=== PATIENT | female | born 1995 | race Two or more races ===

== ENCOUNTER 2025-02-19 10:50 | Observation (INO) | payer MEDICAID ==
[~2025-02-19] VITALS: Ht 154.9 cm; Wt 74.4 kg
--- NOTE | 2025-02-19 12:13 | DVH ---
BIOPHYSICAL PROFILE HISTORY: GDMA1 TECHNIQUE: Multiple transabdominal real-time grayscale sonographic images through the gravid uterus of the fetus with duplex Doppler color flow and M-mode spectral analysis FINDINGS: BIOPHYSICAL PROFILE: breathing score: 2 movement score: 2 tone score: 2 Quantitative STEPAN score: 2 (STEPAN: 16 Cm.) Total score: 8 The cervix WAS NOT SEEN Single live fetus in cephalic presentation. heart rate 109 beats per minute. Grade II right lateral placenta without previa or abruption IMPRESSION: Biophysical profile score: 8
[2025-02-19] MEDS ORDERED: PREN-96 PO (12:16)
--- NOTE | 2025-02-19 15:55 | DVHDS2 ---
Physician Discharge Progress N Final Diagnosis: GDMA1 Secondary Diagnosis: Encounter for surveillance Operations or Procedures: Operations or Procedures NST/BPP STEPAN all NORMAL Condition on Discharge: Stable Disposition: Home Discharge Instructions: Diet: Consistent carbohydrate Activity: No Restrictions, As Tolerated Follow Up/Referral: as scheduled Medications: N/A Follow Up Care: Discharge Statement: "Patient was advised to return to the ER or call 911 if any headaches, dizziness, shortness of breath, chest pain, abdominal pain, bleeding, fevers, or worsening of medical condition. Patient was counseled about treatment plan, medications, possible side effects, patientverbalized understanding. All questions were answered to the best of my ability. This discharge took greater then 30 minutes in planning, reviewing documentation, counseling the patient, and discussing with other team members." Visit Coding OBGYN Date of Service: Feb 19, 2025 Billing Provider: DENISE JAVIER DO CAUSTIC OPERATOR Common Visit Codes: 06643-DJU/OBS SAME DATE (MOD) CAUSTIC OPERATOR Procedure Codes: 80769-27- NON-STRESS TEST DENISE JAVIER DO Feb 19, 2025 15:55
== END 2025-02-19 12:34 | disposition home or self-care (01) ==
LOC: UNDOADMOB 10:50 → LDRP 10:50
PROVIDERS: ADMIT Obstetrics & Gynecology; ATTEND Obstetrics & Gynecology
DX: O24.419 Gestational diabetes mellitus in pregnancy, unspecified control (principal); Z3A.34 34 weeks gestation of pregnancy; Z79.899 Other long term (current) drug therapy
CPT/HCPCS: 59025; 76819; 81002; 82948; 82962; 94760; G0378

== ENCOUNTER 2025-02-26 07:25 | Observation (INO) | payer MEDICAID ==
[~2025-02-26 07:25] MED LIST: PREN-96 PO
--- NOTE | 2025-02-26 10:59 | DVH ---
BIOPHYSICAL PROFILE HISTORY: GDMA1 TECHNIQUE: Multiple transabdominal real-time grayscale sonographic images through the gravid uterus o f the fetus with duplex doppler color flow and M-mode spectral analysis FINDINGS: BIOPHYSICAL PROFILE: breathing score: 2 movement score: 2 tone score: 2 Quantitative STEPAN score: 2 (STEPAN: 15.4 cm.) Total score: 8/8 Single live fetus in cephalic presentation. heart rate 143 beats per minute. Posterior/fundal placenta without previa or abruption Biophysical profile score 8/8 corresponding to an JOSE of 04/02/25 IMPRESSION: Biophysical profile score: 8/8
--- NOTE | 2025-02-26 13:14 | DVHDS2 ---
Physician Discharge Progress N Final Diagnosis: gdm 35wks Operations or Procedures: Operations or Procedures nst reactive reviewed,sono Condition on Discharge: Good Disposition: Home Discharge Instructions: Diet: Consistent carbohydrate Activity: No Restrictions, As Tolerated Medications: na Follow Up Care: Specialist: 1w Discharge Statement: "Patient was advised to return to the ER or call 911 if any headaches, dizziness, shortness of breath, chest pain, abdominal pain, bleeding, fevers, or worsening of medical condition. Patient was counseled about treatment plan, medications, possible side effects, patientverbalized understanding. All questions were answered to the best of my ability. This discharge took greater then 30 minutes in planning, reviewing documentation, counseling the patient, and discussing with other team members." Visit Coding OBGYN Date of Service: Feb 26, 2025 Billing Provider: MILO PEREZ DO LUCERNE FARMER Common Visit Codes: 39108-[id number] OBS CARE (HIGH) LUCERNE FARMER Procedure Codes: 01771-74- NON-STRESS TEST MILO PEREZ DO Feb 26, 2025 13:14
== END 2025-02-26 11:03 | disposition home or self-care (01) ==
LOC: UNDOADMOB 09:50 → LDRP 09:50
PROVIDERS: ADMIT Obstetrics & Gynecology; ATTEND Obstetrics & Gynecology
DX: O24.419 Gestational diabetes mellitus in pregnancy, unspecified control (principal); Z3A.35 35 weeks gestation of pregnancy; Z79.899 Other long term (current) drug therapy; Z98.890 Other specified postprocedural states
CPT/HCPCS: 59025; 76819; 81002; 82948; 94760; G0378

== ENCOUNTER 2025-03-05 10:00 | Observation (INO) | payer MEDICAID ==
--- NOTE | 2025-03-05 11:37 | DVH ---
BIOPHYSICAL PROFILE HISTORY: GDMA1 TECHNIQUE: Multiple real-time grayscale sonographic images through the gravid uterus of the fetus wi th duplex Doppler color flow. FINDINGS: BIOPHYSICAL PROFILE: breathing score: 2 movement score: 2 tone score: 2 Quantitative STEPAN score: 2 Total score: 8 out of 8 Single live intrauterine . heart rate of 135 beats per minute. Cephalic lie. Placenta fundal repositioned. STEPAN 14.5 cm. IMPRESSION: Biophysical profile score: 8 out of 8
--- NOTE | 2025-03-05 13:03 | DVHDS2 ---
Physician Discharge Progress N Final Diagnosis: gdm 36wks Operations or Procedures: Operations or Procedures nst reactive reviwed,sono Condition on Discharge: Good Disposition: Home Discharge Instructions: Diet: Consistent carbohydrate Activity: No Restrictions, As Tolerated Medications: na Follow Up Care: Specialist: 3d Discharge Statement: "Patient was advised to return to the ER or call 911 if any headaches, dizziness, shortness of breath, chest pain, abdominal pain, bleeding, fevers, or worsening of medical condition. Patient was counseled about treatment plan, medications, possible side effects, patientverbalized understanding. All questions were answered to the best of my ability. This discharge took greater then 30 minutes in planning, reviewing documentation, counseling the patient, and discussing with other team members." Visit Coding OBGYN Date of Service: Mar 05, 2025 Billing Provider: MILO PEREZ DO GALLEY WORKER Common Visit Codes: 75526-[id number] OBS CARE (HIGH) GALLEY WORKER Procedure Codes: 16385-50- NON-STRESS TEST MILO PEREZ DO Mar 05, 2025 13:03
== END 2025-03-05 11:28 | disposition home or self-care (01) ==
LOC: LDRP 10:00
PROVIDERS: ADMIT Obstetrics & Gynecology; ATTEND Obstetrics & Gynecology
DX: O24.419 Gestational diabetes mellitus in pregnancy, unspecified control (principal); Z3A.36 36 weeks gestation of pregnancy; Z79.899 Other long term (current) drug therapy; Z98.890 Other specified postprocedural states
CPT/HCPCS: 59025; 76819; 81002; 82948; 82962; 94760; G0378

== ENCOUNTER 2025-03-11 08:43 | Observation (INO) | payer MEDICAID ==
--- NOTE | 2025-03-11 11:46 | DVH ---
BIOPHYSICAL PROFILE HISTORY: GDMA1 TECHNIQUE: Multiple transabdominal real-time grayscale sonographic images through the gravid uterus of the fetus with duplex Doppler color flow and M-mode spectral analysis FINDINGS: BIOPHYSICAL PROFILE: breathing score: 2 movement score: 2 tone score: 2 Quantitative STEPAN score: 2 (STEPAN: 16.7 Cm.) Total score: 8 The cervix was not seen Single live fetus in cephalic presentation. heart rate 131 beats per minute. Grade II posterior placenta without previa or abruption IMPRESSION: Biophysical profile score: 8/8
--- NOTE | 2025-03-12 07:36 | DVHDS2 ---
Physician Discharge Progress N Final Diagnosis: gdm 36wks Operations or Procedures: Operations or Procedures nst reactive reviwed,sono Condition on Discharge: Good Disposition: Home Discharge Instructions: Diet: Regular, Consistent carbohydrate Activity: No Restrictions, As Tolerated Medications: na Follow Up Care: Specialist: 3d Discharge Statement: "Patient was advised to return to the ER or call 911 if any headaches, dizziness, shortness of breath, chest pain, abdominal pain, bleeding, fevers, or worsening of medical condition. Patient was counseled about treatment plan, medications, possible side effects, patientverbalized understanding. All questions were answered to the best of my ability. This discharge took greater then 30 minutes in planning, reviewing documentation, counseling the patient, and discussing with other team members." Visit Coding OBGYN Date of Service: Mar 11, 2025 Billing Provider: MILO PEREZ DO SUPERVISOR EDUCATION Common Visit Codes: [id number] INP/OBS CARE (HIGH) SUPERVISOR EDUCATION Procedure Codes: 16659-24- NON-STRESS TEST MILO PEREZ DO Mar 12, 2025 07:36
== END 2025-03-11 12:53 | disposition home or self-care (01) ==
LOC: LDRP 10:30
PROVIDERS: ADMIT Obstetrics & Gynecology; ATTEND Obstetrics & Gynecology
DX: O24.419 Gestational diabetes mellitus in pregnancy, unspecified control (principal); Z3A.36 36 weeks gestation of pregnancy; Z79.899 Other long term (current) drug therapy; Z98.890 Other specified postprocedural states
CPT/HCPCS: 59025; 76819; 81002; 82948; 82962; 84112; 94760; G0378

== ENCOUNTER 2025-03-12 18:19 | Observation (INO) | payer MEDICAID ==
--- NOTE | 2025-03-12 19:22 | DVH ---
OB ULTRASOUND, LIMITED CLINICAL INDICATION: Decreased movement TECHNIQUE: Multiple grayscale ultrasound and M-mode images were obtained of the pelvis for evaluation of intrauterine . COMPARISON: US BIOPHYSICAL PROFILE on DOS: 03/11/25, US BIOPHYSICAL PROFILE on DOS: 03/05/25, US BIOPHYS ICAL PROFILE on DOS: 02/26/25 FINDINGS: A single living fetus is seen in cephalic presentation. Biophysical profile: 04/16 breathin movements: 2 Amniotic fluid: 2 Placenta: Posterior. Amniotic fluid: Visibly normal. STEPAN 18.4 cm heart rate: 122 beats/min. A single nuchal cord is seen. IMPRESSION: Biophysical profile: 04/16
--- NOTE | 2025-03-12 21:41 | DVHDS2 ---
ISRAEL ROSARIO CNMJul 2024 21:41
--- NOTE | 2025-03-13 07:16 | DVHDS2 ---
Physician Discharge Progress N Final Diagnosis: NST Reactive and Reassuring False Labor Secondary Diagnosis: MOVEMENT- Operations or Procedures: Operations or Procedures NST REACTIVE HERBERT COOPERPT SEEN BY ME Condition on Discharge: Good Disposition: Home Discharge Instructions: Diet: Regular Activity: No Restrictions, As Tolerated Activity comment: Refrain from sexual relations for two-three days for body to rest Follow Up/Referral: Keep Scheduled appointment with Dr Vivas Medications: PNV Follow Up Care: Specialist: 4D Discharge Statement: "Patient was advised to return to the ER or call 911 if any headaches, dizziness, shortness of breath, chest pain, abdominal pain, bleeding, fevers, or worsening of medical condition. Patient was counseled about treatment plan, medications, possible side effects, patientverbalized understanding. All questions were answered to the best of my ability. This discharge took greater then 30 minutes in planning, reviewing documentation, counseling the patient, and discussing with other team members." Visit Coding OBGYN Date of Service: Mar 12, 2025 Billing Provider: MILO VIVAS DO PLANE RUNNER Common Visit Codes: 24919-QICZAVF OBS CARE (HIGH) PLANE RUNNER Procedure Codes: 94008-49- NON-STRESS TEST MILO VIVAS DO Mar 13, 2025 07:16
== END 2025-03-12 22:13 | disposition home or self-care (01) ==
LOC: LDRP 18:19
PROVIDERS: ADMIT Obstetrics & Gynecology; ATTEND Obstetrics & Gynecology
DX: O36.8130 Decreased fetal movements, third trimester, not applicable or unspecified (principal); O47.03 False labor before 37 completed weeks of gestation, third trimester; Z3A.37 37 weeks gestation of pregnancy; Z79.899 Other long term (current) drug therapy; Z98.890 Other specified postprocedural states
CPT/HCPCS: 59025; 76819; 81002; 82948; 82962; 94760; G0378

== ENCOUNTER 2025-03-18 02:26 | Observation (INO) | payer MEDICAID ==
--- NOTE | 2025-03-18 14:30 | DVH ---
CLINICAL HISTORY: Gestational diabetes. COMPARISON: US BIOPHYSICAL PROFILE on DOS: 03/12/25, US BIOPHYSICAL PROFILE on DOS: 03/11/25, US BIOPHYSI RAMON PROFILE on DOS: 03/05/25 TECHNIQUE: biophysical profile was performed. Transabdominal sonographic images of the fetus we re obtained. FINDINGS: The fetus is in cephalic position. heart rate measures 128 BPM. Amniotic fluid index measures 17.6 cm. The placenta is posterior in position with no evidence of previa or abruption. Poss ible nuchal cord X1 with the umbilical cord coursing at least partially around the patient's neck. BPP profile is an overall score of 8/8, with 2/2 points for breathing, with at least one episode of breathing over a 30 second duration during a 30 minute observation, 2/2 points for m ovements, with 3 or more discrete body or limb movements, 2/2 points for tone, with one or more episodes of extremity extension with return to flexion, or opening and closing of hand, and 2/ 2 points for amniotic fluid, with at least 1 pocket of amniotic fluid that measures 2 cm in 2 perpend icular planes. IMPRESSION: 1. BPP score of 8/8. 2. Possible nuchal cord.
--- NOTE | 2025-03-23 15:23 | DVHDS2 ---
Physician Discharge Progress N Final Diagnosis: gdm 37wks Operations or Procedures: Operations or Procedures nst reviwed,reactive,sono Condition on Discharge: Good Disposition: Home Discharge Instructions: Diet: Regular, Consistent carbohydrate Activity: No Restrictions, As Tolerated Medications: na Follow Up Care: Specialist: 4d Discharge Statement: "Patient was advised to return to the ER or call 911 if any headaches, dizziness, shortness of breath, chest pain, abdominal pain, bleeding, fevers, or worsening of medical condition. Patient was counseled about treatment plan, medications, possible side effects, patientverbalized understanding. All questions were answered to the best of my ability. This discharge took greater then 30 minutes in planning, reviewing documentation, counseling the patient, and discussing with other team members." Visit Coding OBGYN Date of Service: Mar 18, 2025 Billing Provider: MILO PEREZ DO GUN SEALING MACHINE OPERATOR Common Visit Codes: 87020-[id number] OBS CARE (HIGH) GUN SEALING MACHINE OPERATOR Procedure Codes: 58611-86- NON-STRESS TEST MILO PEREZ DO Mar 23, 2025 15:23
== END 2025-03-18 14:48 | disposition home or self-care (01) ==
LOC: LDRP 13:03
PROVIDERS: ADMIT Obstetrics & Gynecology; ATTEND Obstetrics & Gynecology
DX: O24.419 Gestational diabetes mellitus in pregnancy, unspecified control (principal); Z3A.37 37 weeks gestation of pregnancy; Z79.899 Other long term (current) drug therapy; Z98.890 Other specified postprocedural states
CPT/HCPCS: 59025; 76819; 81002; 82948; 82962; 94760; G0378

== ENCOUNTER 2025-03-25 06:46 | Inpatient (IN) | payer MEDICAID ==
[~2025-03-25] VITALS: Ht 152.4 cm; Wt 79.4 kg
--- NOTE | 2025-03-25 13:53 | DVH ---
BIOPHYSICAL PROFILE HISTORY: GDMA1 Comparison Study: US BIOPHYSICAL PROFILE on DOS: 03/18/25, US BIOPHYSICAL PROFILE on DOS: 03/12/25, US B IOPHYSICAL PROFILE on DOS: 03/11/25, US BIOPHYSICAL PROFILE on DOS: 03/05/25, US BIOPHYSICAL PROFILE on DOS: 02/26/25 TECHNIQUE: Multiple real-time grayscale sonographic images through the gravid uterus of the fetus wi th duplex Doppler color flow and M-mode spectral analysis FINDINGS: BIOPHYSICAL PROFILE: breathing score: 2 movement score: 2 tone score: 2 Quantitative STEPAN score: 2 (STEPAN: 18.3 Cm.) Total score: 8 The cervix is not visualized Single live fetus in cephalic presentation. heart rate 120 beats per minute. Posterior placenta without previa or abruption IMPRESSION: Biophysical profile score: 8/8 Positive nuchal cord.
[2025-03-25 14:30] LABS: Hematocrit 37.7 % (36.0-46.0); Hemoglobin 12.2 g/dL (12.2-16.2); Mean Corpuscular Hemoglobin 24.1 pg (28.0-32.0); Mean Corpuscular Volume 74.5 fL (80.0-100.0); Nucleated Red Blood Cells % 0.1 %
[2025-03-25 14:45] LABS: INR 0.95 (0.9-1.15); Partial Thromboplastin Time 28.1 SEC (24.5-34.5); Prothrombin Time 10.1 sec (9.3-11.8)
[2025-03-25 14:46] LABS: Alanine Aminotransferase 10 U/L (7-40); Albumin 3.9 g/dL (3.2-4.8); Anion Gap 10 (5-15); BUN/Creatinine Ratio 11.5 (10.0-20.0); Bilirubin, Total 0.3 mg/dL (0.2-1.0); Calcium 9.8 mg/dL (8.7-10.4); Carbon Dioxide 21 mmol/L (20-31); Potassium 3.9 mmol/L (3.5-5.1); Sodium 139 mmol/L (136-145); Total Protein 6.1 g/dL (5.7-8.2)
[2025-03-25 14:47] LABS: Alkaline Phosphatase 195 U/L (46-116); Blood Urea Nitrogen 7 mg/dL (9-23); Chloride 108 mmol/L (98-107); Glucose 129 mg/dL (74-106)
[2025-03-25 15:33] LABS: Urine Protein, UAD Negative (Negative)
[2025-03-25 15:51] LABS: Amphetamine Screen, Urine Neg (NEGATIVE)
[2025-03-25 15:52] LABS: Barbiturate Scree,Urine Neg (NEGATIVE); Benzodiazephine Screen, Urine Neg (NEGATIVE); Cannabinoid Screen, Urine Neg (NEGATIVE); Cocaine Screen, Urine Neg (NEGATIVE); Opiate Scree,Urine Neg (NEGATIVE); Phencyclidine Screen, Urine Neg (NEGATIVE)
[2025-03-25] MEDS ORDERED: LACT. RINGERS/OXYTOCIN 20UNITS 1,000 ML IV SCH (20:15)
[2025-03-25] MEDS ORDERED: LACT. RINGERS/OXYTOCIN 20UNITS 500 ML IV ONE ×2 (20:15→20:45)
[2025-03-25] MEDS ORDERED: TERBUTALINE SULFATE 1 MG/ML 1ML VIAL SC PRN (20:15)
[2025-03-26] VITALS (14 sets, daily range): BP systolic 102–135; BP diastolic 54–94; PULSE 68–95; RESP 15–20; TEMP 98–98.5; O2SAT 92–97
--- NOTE | 2025-03-26 02:23 | DVHPN2 ---
[facility] Labor Progress Note Date and Time Seen Date Seen: Mar 26, 2025 Time Seen: 02:15 Subjective Patient reports: No new complaints Subjective Comment Patient is getting back into bed from using the restroom. She is feeling occasional pain in her lower pelvis, but declines need for medication. Objective Vital Signs 03/25 @ 2257: BP-109/60 HR- 59 RR- 16 SpO2- 100 T- 98.1 Monitoring Method Monitoring Method: External Heart Rate Heart Rate Baseline: 110 Heart Rate Variability: Moderate Presence of FHR Accelerations: Yes Presence of FHR Decelerations: Yes Heart Rate Type of Decel: Variable Decelerations (occasional. not recurrent) Contractions Contractions Frequency: Occasional Contractions Intensity: Mild Contractions Resting Tone: Relaxed Membranes Membranes: Intact Vaginal Exam Vag Exam Deferred: Yes Medications Medications - Pitocin: No Medication - Epidural: No Lab Results Lab Results Current Medications Medications (Trade) Dose Ordered Sig/Melisa Start Time Stop Time Status Last Admin Dose Admin Lactated Ringer's 1,000 ml @ 125 mls/hr Q8H 03/25/25 14:15 Laboratory Tests Test 03/25/25 22:59 03/25/25 14:30 03/25/25 14:18 Range/Units POC Glucose 94 70-106 mg/dl Urine Color Light-yellow Yellow Urine Clarity Clear Clear Urine pH 6.5 5.0-9.0 Urine Specific [place] 1.010 1.001-1.035 Urine Protein Negative Negative Urine Ketones Negative Negative Urine Blood Negative Negative /uL Urine Nitrite Negative Negative Urine Bilirubin Negative Negative Urine Urobilinogen Normal Negative mg/dL Urine Leukocyte Esterase 1+ Negative /uL Urine RBC None seen 0 - 4 /hpf Urine Microscopic WBC 3 0-5 /HPF Urine Squamous Epithelial Cells Few <5 /hpf Urine Bacteria Few H None Seen /hpf Urine Hyaline Casts Few 0 - 2 /lpf Urine Glucose Normal Normal mg/dL Urine Opiates Screen Neg NEGATIVE Urine Fentanyl Screen Neg NEGATIVE Urine Barbiturates Screen Neg NEGATIVE Urine Phencyclidine Screen Neg NEGATIVE Urine Amphetamines Screen Neg NEGATIVE Urine Benzodiazepines Screen Neg NEGATIVE Urine Cocaine Screen Neg NEGATIVE Urine Cannabinoids Screen Neg NEGATIVE White Blood Count 9.1 4.4-10.8 10^3/uL Red Blood Count 5.07 4.0-5.20 10^6/uL Hemoglobin 12.2 12.2-16.2 g/dL Hematocrit 37.7 36.0-46.0 % Mean Corpuscular Volume 74.5 L 80.0-100.0 fL Mean Corpuscular Hemoglobin 24.1 L 28.0-32.0 pg Mean Corpuscular Hemoglobin Concent 32.3 32.0-36.0 g/dL Red Cell Distribution Width 15.4 H 11.8-14.3 % Platelet Count 219 140-450 10^3/uL Mean Platelet Volume 9.6 6.9-10.8 fL Neutrophils (%) (Auto) 68.6 37.0-80.0 % Lymphocytes (%) (Auto) 21.9 10.0-50.0 % Monocytes (%) (Auto) 8.4 0.0-12.0 % Eosinophils (%) (Auto) 0.8 0.0-7.0 % Basophils (%) (Auto) 0.3 0.0-2.0 % Neutrophils # (Auto) 6.3 1.6-8.6 10 ^3/uL Lymphocytes # (Auto) 2.0 0.4-5.4 10 ^3/uL Monocytes # (Auto) 0.8 0-1.3 10 ^3/uL Eosinophils # (Auto) 0.1 0-0.8 10 ^3/uL Basophils # (Auto) 0 0-0.2 10 ^3/uL Nucleated Red Blood Cells 0.1 % Prothrombin Time 10.1 9.3-11.8 sec Prothrombin Time INR 0.95 0.9-1.15 Activated Partial Thromboplast Time 28.1 24.5-34.5 SEC Sodium Level 139 136-145 mmol/L Potassium Level 3.9 3.5-5.1 mmol/L Chloride Level 108 H 98-107 mmol/L Carbon Dioxide Level 21 20-31 mmol/L Anion Gap 10 5-15 Blood Urea Nitrogen 7 L 9-23 mg/dL Creatinine 0.61 0.550-1.02 mg/dL Glomerular Filtration Rate Calc 123 >90 mL/min BUN/Creatinine Ratio 11.5 10.0-20.0 Serum Glucose 129 H 74-106 mg/dL Calcium Level 9.8 8.7-10.4 mg/dL Total Bilirubin 0.3 0.2-1.0 mg/dL Aspartate Amino Transferase (AST) 20 13-40 U/L Alanine Aminotransferase (ALT) 10 7-40 U/L Alkaline Phosphatase 195 H 46-116 U/L Total Protein 6.1 5.7-8.2 g/dL Albumin 3.9 3.2-4.8 g/dL Treponema pallidum Antibody Non-reactive Negative Hepatitis C Antibody Negative Negative Assessment Assessment - IUP 39w0d -GDM A1 -Observation for testing -Primary section at 10 AM Plan Plan Patient being managed by Dr Vivas -Continue to keep patient on continuous monitoring -Monitor blood sugar q4 hours -Keep patient NPO in preparation for primary c/s in AM -Patient has no questions at this time with the plan of care and is excited to have her baby in the morning Plan discussed with: Patient Visit Coding OBGYN Date of Service: Mar 26, 2025 Billing Provider: ARLEEN TY CNM AIRFRAME DESIGN ENGINEER Common Visit Codes: [id number] INP/OBS CARE(MOD) AIRFRAME DESIGN ENGINEER Procedure Codes: 76463-53- NON-STRESS TEST ARLEEN TY CNM Mar 26, 2025 02:23
[2025-03-26] MEDS: LACTATED RINGER'S 1,000 ML IV ONE (06:30)
--- NOTE | 2025-03-26 07:23 | DVHHP2 ---
OB CC & HPI Date Date of Admission: Mar 25, 2025 Patient Identification: : 1 Para: 0 EDC: Apr 02, 2025 EGA: 29WKS Chief Complaints: Reason for admission: other (DEC FM,NON REASSURING FHT) Admission Nurse Assessment Rev: No History of Present Complaints PT IS ADMITTED FOR OBSERVATION REPORTED DFM AND WAS HAVING VARIABLES/DECLS ESPECIALLY WITH UCS SUBSEQUENTLY DCEISION WAS MADE IN DISCUSSING THE OPTIONS OF DELIVERY WITH THE PT TO PROCEED WITH PCS FOR NONREASSURING FHT/FETUS AT RISK Past Medical History Cardiac: No pertinent Hx Pulmonary: No pertinent Hx Central Nervous System: No pertinent Hx GI: No pertinent Hx Hemotology/Oncology: No pertinent Hx Hepatobiliary: No pertinent Hx Psychiatric: No pertinent Hx Musculoskeletal: No pertinent Hx Rheumotologic: No pertinent Hx Infectious Disease: No peritnent Hx ENT: No pertinent Hx Renal/: No pertinent Hx Endocrine: No pertinent Hx Dermatology: No pertinent Hx Past Surgical History: No pertinent Hx OB History OB History Care: Good Care Ultrasounds: Normal mid trimester US Obstetrical Complications: Gestational Diabetes Medical Complications: None Allergies: Coded Allergies: NO KNOWN ALLERGIES (Unverified , 02/19/25) Home Meds Reported Medications Vit W/ Ferrous Fumara ( One Daily) Daily Tab, 1 TAB PO DAILY, #90 TAB 3 Refills 02/19/25 Current Medications Current Medications Medications (Trade) Dose Ordered Sig/Melisa Route PRN Reason Start Time Stop Time Status Last Admin Lactated Ringer's 1,000 ml @ 125 mls/hr Q8H IV 03/25/25 14:15 Oxytocin 1,000 ml @ 6 ml/hr Q24H IV 03/25/25 20:15 Cancel Terbutaline Sulfate (Brethine Inj) 0.25 mg ONCE PRN SC Uterine tachysystole 03/25/25 20:15 Cancel Lactated Ringer's 1,000 ml @ 125 mls/hr Q8H IV 03/26/25 06:30 Family & Social History Family/Social History Blood Type: O+ Rubella: immune RPR/VDRL: Negative GBS Status: Unknown HBsAG: Negative Review of Systems Constitutional: No symptom reported Ears, Nose, & Throat: No symptom reported Eyes: No symptom reported Pulmonary/Respiratory: No symptom reported Cardiovascular: No symptom reported Gastrointestinal: No symptom reported Genitourinary: No symptom reported Musculoskeletal: No symptom reported Skin: No symptom reported Psychiatric: No symptom reported Endocrine: No symptom reported Hemotologic/Lymphatic: No symptom reported OB Admission Exam Physical Exam HEENT: TMs Normal, Fontanelles Normal, Nasal Mucosa Normal, Eyes non-injected, Oropharynx Normal, PERRLA, Moist Membranes, EOMI Heart: Rhythm Normal Lungs: Clear Abdomen: Non tender Extremities: Normal Reflexes: Normal Cervical Dilatation: 1cm Effacement: 25% Station: -3 Membranes: Intact Heart Rate: 130's Accelerations: Accelerations Present Decelerations: No Decelerations Short Term Variability: Present Chief Librarian Music Department Variability: Average (6-25) Contractions on Admission: >10 Minutes Apart Intensity: Mild OB Plan Plan Admitting Diagnosis: IUP AT 39 WKS GDMA1 DECREASED MOVEMENT,NON REASSURING FHT,FETUS AT RISK DESIRES PCS Plan: Section Other Plan: INFORMED CONSENT OBTANIED RISKS AND COMPL OF CS D/W PT.RISK OF PE,DVT BLEEDING ,INFECTION D/W PT. ALL QUESTIONS ANSERED PT FULLY UNDERSTANDS WISHES TO PROCEED WITH PCS Visit Coding OBGYN Date of Service: Mar 26, 2025 Billing Provider: MILO PEREZ DO THEATRE DIRECTOR Common Visit Codes: [id number] INP/OBS CARE (HIGH) THEATRE DIRECTOR Procedure Codes: 97548-98- NON-STRESS TEST MILO PEREZ DO Mar 26, 2025 07:23
[2025-03-26] MEDS ORDERED: HYDR-4072 PO (08:17)
[2025-03-26] MEDS ORDERED: DOCU-94 PO (08:17)
[2025-03-26] MEDS ORDERED: IBUP-1456 PO (08:17)
[2025-03-26] MEDS ORDERED: ONDANSETRON HCL 4 MG/2 ML VIAL IV PRN ×2 (09:15→10:45)
[2025-03-26] MEDS: GUM (CHEWING) 1 GUM CHEW CHEW ONE (09:15)
[2025-03-26] MEDS ORDERED: ceFAZolin 1GM/50ML 50 ML IV SCH (09:15)
[2025-03-26] MEDS ORDERED: MORPHINE SULF PF 5 MG/10 ML VIAL ONE (09:16)
[2025-03-26] MEDS: ceFAZolin 2 GM/D5W50ml 50 ML IV ONE (09:24)
[2025-03-26] MEDS: LACTATED RINGER'S 1,000 ML IV SCH ×2 (09:25→20:56)
[2025-03-26] MEDS ORDERED: ONDANSETRON HCL 4 MG/2 ML VIAL ONE (09:42)
[2025-03-26] MEDS: NALBUPHINE HCL 10 MG/1ml INJECTION SUBCUT ONE (10:45)
[2025-03-26] MEDS ORDERED: NALOXONE HCL 0.4 MG/ML VIAL IV PRN (10:45)
[2025-03-26] MEDS ORDERED: KETOROLAC TROMETH 30 MG/ML 1ML VIAL IV PRN (10:45)
[2025-03-26] MEDS: ACETAMINOPHEN IV 100 ML IV ONE (10:45)
[2025-03-26] MEDS ORDERED: MEPERIDINE HCL (25 MG/ML) 1ML VIAL IV PRN (10:45)
[2025-03-26] MEDS: ACETAMINOPHEN IV 1000 MG/100ML (10MG/ML) IV PRN ×2 (10:45→22:05)
[2025-03-26] MEDS ORDERED: HYDROmorphone HCL 2 MG/ML VL/or syr IV PRN ×2 (10:45)
[2025-03-26] MEDS: ONDANSETRON HCL 4 MG/2 ML VIAL IV ONE (10:45)
[2025-03-26] MEDS: LACT. RINGERS/OXYTOCIN 20UNITS 1,000 ML IV ONE (11:48)
[2025-03-26] MEDS: diphenhdrAMINE HCL 50 MG/1 ML VL IV PRN (12:21)
--- NOTE | 2025-03-26 13:51 | DVHOP2 ---
Operative Report DATE OF OPERATION: 03/26/25 PREOPERATIVE DIAGNOSES: Term 39wks with nonreassuring fht,fetus at risk,nuchal cord,gdm,decreased movement,desires pcs POSTOPERATIVE DIAGNOSES: same SURGEON: Jaye Vivas D.O./anitra ANESTHESIOLOGIST: stacy TYPE OF ANESTHESIA : spinal CONSENT: The patient was informed of the risks and benefits of the procedure. The patient was informed of the risks and benefits of the procedure. These include but are not limited to , complications of anesthesia, postoperative infection, incomplete relief of symptoms, recurrence of symptoms, damage to blood vessels, nerves and tendons, deep venous thrombosis, pulmonary embolism and possible need for repeat surgery in the future. FINDINGS: Baby [b] with Apgars of [8] and [9]. Grossly normal appearing tubes and ovaries.nuchal cord PROCEDURES: Primary low transverse section. PROCEDURE IN DETAIL: The patient was taken to the operating room. She already had an epidural in place. She was then placed in supine position with a leftward tilt. A Pfannenstiel skin incision was made 2 cm above the symphysis pubis. This incision was carried to the underlying layer of fascia. The fascia was nicked in the midline. The incision was extended laterally. The superior aspect of the fascial incision was grasped and elevated. The same procedure was done to the inferior aspect of the fascial incision. The rectus muscles were then in the midline. Peritoneum was identified and entered. Peritoneal incision was extended superiorly and inferiorly with good visualization of the bladder. Bladder blade was inserted. Vesicouterine peritoneum was identified and entered. Lower uterine segment was incised in a transverse fashion. The infant was delivered from vertex presentation. Infant was baby [b] with Apgars [8] and [9]. Placenta was then r emoved manually. Uterus was exteriorized and cleared of all clots and debris. The incision was repaired using 0 Vicryl in a double-layered fashion. No bleeding was noted. Uterus was then returned to the abdomen. The gutters were cleared off all clots and debris. Peritoneum was closed using 0 Vicryl, fascia was closed using 0 Maxon, and skin was closed using chary. The patient tolerated the procedure well. She was taken to the recovery room in stable condition. ESTIMATED BLOOD LOSS: Estimated blood loss was noted to be 800 mL. Visit Coding OBN Date of Service: Mar 25, 2025 Billing Provider: JAYE VIVAS DO PRINCIPAL PROGRAMMER Common Visit Codes: [id number] OBS CARE (HIGH) PRINCIPAL PROGRAMMER Procedure Codes: [id number] DELIVERY ONLY JAYE VIVAS DO Mar 26, 2025 13:51
--- NOTE | 2025-03-26 13:53 | POSTOP ---
Post-Operative Note Post-Operative Note Preop Diagnosis iup at 39wks nonreassuring fht,fetus at risk,nuchal cord,desires pcs Postop Diagnosis: same Operation performed pltcs Specimen baby boy,apgars 8-9,nuchal cordx1 Anesthesia: Regional Anesthesiologist: stacy Blood Loss(fluid mgmt) 800ml Surgeon Milo Vivas Network Support Administrator anitra Implant na Complications & Mgmt none Date 03/26/25 Time 13:51 Visit Coding OBGYN Date of Service: Mar 26, 2025 Billing Provider: MILO VIVAS DO INFORMATION TECHNOLOGY ASSISTANT Common Visit Codes: 53425-WALOKAQ OBS CARE (HIGH) INFORMATION TECHNOLOGY ASSISTANT Procedure Codes: 87419-[id number] DELIVERY ONLY MILO VIVAS DO Mar 26, 2025 13:53
[2025-03-26] MEDS: ceFAZolin 1GM/50ML 50 ML IV SCH (17:20)
[2025-03-26 22:04] LABS: Hematocrit 32.6 % (36.0-46.0); Hemoglobin 10.6 g/dL (12.2-16.2); Mean Corpuscular Hemoglobin 24.1 pg (28.0-32.0); Mean Corpuscular Volume 74.2 fL (80.0-100.0); Nucleated Red Blood Cells % 0.0 %
[2025-03-27] VITALS (15 sets, daily range): BP systolic 108–127; BP diastolic 66–85; PULSE 75–95; RESP 15–18; TEMP 97.9–98.5; O2SAT 92–99
--- NOTE | 2025-03-27 02:06 | DVHPN2 ---
Progress Note Date Seen: Mar 27, 2025 Subjective Entire visit with patient utilized radiation engineer service: Caren #[id number] -Heike murry. -Patient has been on clear liquid, but requesting to have regular diet -Ambulating well w/o feeling dizzy or lightheaded -Catheter still in place -Pain relieved with PO medications -Passing flatus but no BM yet. -Expressed some concern with because she wasn't seeing milk from her breasts vital signs Vital Sign Date Time Temp Pulse Resp B/P (MAP) Pulse Ox O2 Delivery O2 Flow Rate FiO2 03/27/25 00:00 79 15 111/77 (88) 95 03/26/25 23:00 98.5 98.5 03/26/25 18:30 Room Air 03/26/25 11:30 0.0 03/26/25 10:33 97 Total Intake and Output 03/26/25 03/26/25 03/27/25 15:00 23:00 07:00 Output Total 100 ml 950 ml Balance -100 ml -950 ml medications Current Medications Medications Dose Ordered Sig/Melisa Route Start Time Stop Time Status Last Admin Dose Admin Lactated Ringer's 1,000 ml @ 125 mls/hr Q8H IV 03/25/25 14:15 03/26/25 20:56 125 MLS/HR Oxytocin 1,000 ml @ 6 ml/hr Q24H IV 03/25/25 20:15 Cancel Terbutaline Sulfate 0.25 mg ONCE PRN SC 03/25/25 20:15 Cancel Lactated Ringer's 1,000 ml @ 125 mls/hr Q8H IV 03/26/25 06:30 03/26/25 09:25 125 MLS/HR Ondansetron HCl 4 mg Q4HP PRN IV 03/26/25 09:15 Diphenhydramine HCl 25 mg Q4HP PRN IV 03/26/25 10:45 03/26/25 12:21 25 MG Ketorolac Tromethamine 30 mg Q6HP PRN IV 03/26/25 10:45 03/31/25 10:44 Cefazolin Sodium 50 ml @ 100 mls/hr Q8H IV 03/26/25 17:30 03/27/25 09:59 03/27/25 01:24 100 MLS/HR Acetaminophen 1,000 mg Q8HPRN PRN IV 03/26/25 17:00 03/27/25 14:01 03/26/25 22:05 1,000 MG laboratory and microbiology Laboratory Tests 03/26/25 21:02 03/25/25 14:18 Test 03/25/25 14:18 Range/Units Serum Glucose 129 H 74-106 mg/dL Objective -A&O x4. No apparent distress. Appropriate affect -Afebrile, VSS -Chest: heart and lung sounds normal. -Breasts: Nipples intact w/o cracks or soreness. Colostrum expressable -Abdomen: normal BS, soft, non-tender, no rebound or guarding, fundus firm @ U- 1, -Lower abdominal Incision site with dressing, dry and intact. No edema, erythema or induration -Extremities: no edema or tenderness Problems(with codes): (1) S/P primary low transverse Assessment/Plan ASSESSMENT -29 yo now Post operative & ppd # 1 s/p Primary Section for intolerance, doing well. -Blood Type: O+ -Breast feeding -Rubella immune PLAN -Continue pain management with oral medications as previously ordered -Regular diet ordered. Increase fluid intake and fiber in diet to promote regular bowel movements, Laxative PRN -Taught patient cross cradle and football positions on both breasts to enhance familiarity and confidence with . Showed patient how to hand express colostrum and patient was able to note that both breasts are producing colostrum. -Continue routine care Plan discussed with: Patient, Spouse Visit Coding OBGYN Date of Service: Mar 27, 2025 Billing Provider: ARLEEN TY CNM FIELD REPORTER Common Visit Codes: [id number] INP/OBS CARE(HIGH) ARLEEN TY CNM Mar 27, 2025 02:06
[2025-03-27 09:32] LABS: Hematocrit 31.7 % (36.0-46.0); Hemoglobin 10.3 g/dL (12.2-16.2); Mean Corpuscular Hemoglobin 24.4 pg (28.0-32.0); Mean Corpuscular Volume 75.0 fL (80.0-100.0); Nucleated Red Blood Cells % 0.0 %
[2025-03-27] MEDS ORDERED: HYDROcodone-ACET 5/325MG TAB PO PRN ×2 (15:45)
[2025-03-27] MEDS: IBUPROFEN 800 MG TAB PO PRN (18:53)
[2025-03-27] MEDS: DOCUSATE SOD 100 MG CAP PO SCH (22:00)
[2025-03-27] MEDS: SIMETHICONE 80 MG CHEWABLE TABLET PO SCH (22:05)
[2025-03-28 03:00] VITALS: BP 121/66; PULSE 72; RESP 16; TEMP 97.9; O2SAT 97
--- NOTE | 2025-03-28 06:16 | DVHPN2 ---
Progress Note Date Seen: Mar 28, 2025 Subjective S: Lochia minimal. Regular diet well tolerated. Ambulating and voiding well w/o feeling dizzy or lightheaded. Pain relieved with oral analgesics. Passing flatus but no BM yet. Pumping Breast milk; states very minimal. at [facility] for higher level f care Desires and Requests to be discharged today; wants to go and see baby. vital signs Vital Sign Date Time Temp Pulse Resp B/P (MAP) Pulse Ox O2 Delivery O2 Flow Rate FiO2 03/28/25 03:00 97.9 72 16 121/66 (84) 97 97.9 03/27/25 19:00 Room Air 03/26/25 11:30 0.0 03/26/25 10:33 97 Total Intake and Output 03/27/25 03/27/25 03/28/25 15:00 23:00 07:00 Output Total 2100 ml 600 ml Balance -2100 ml -600 ml medications Current Medications Medications Dose Ordered Sig/Melisa Route Start Time Stop Time Status Last Admin Dose Admin Oxytocin 1,000 ml @ 6 ml/hr Q24H IV 03/25/25 20:15 Cancel Terbutaline Sulfate 0.25 mg ONCE PRN SC 03/25/25 20:15 Cancel Ondansetron HCl 4 mg Q4HP PRN IV 03/26/25 09:15 Cancel Ketorolac Tromethamine 30 mg Q6HP PRN IV 03/26/25 10:45 03/31/25 10:44 Cancel Docusate Sodium 100 mg Q12HR PO 03/27/25 22:00 Dimethicone 80 mg QID PO 03/27/25 18:00 03/28/25 06:00 80 MG Ibuprofen 800 mg Q8HP PRN PO 03/27/25 15:45 03/27/25 18:53 800 MG Acetaminophen/ Hydrocodone Bitart 1 tab Q4HPRN PRN PO 03/27/25 15:45 Acetaminophen/ Hydrocodone Bitart 2 tab Q4HPRN PRN PO 03/27/25 15:45 laboratory and microbiology Laboratory Tests 03/27/25 08:48 03/25/25 14:18 Test 03/25/25 14:18 Range/Units Serum Glucose 129 H 74-106 mg/dL Objective A&O x3 NAD. Afebrile, VSS Chest: heart and lung sounds normal. Breasts: Nipples intact w/o cracks or soreness Abdomen: normal BS, soft, non-tender, no rebound or guarding, fundus firm @ U- 1, Lower abdominal Incision site with Sylke dressing on, same clean, dry and intact. No edema, erythema or induration Extremities: no edema or tenderness Lochia - minimal Assessment/Plan A/P: 29yo female, now Post operative & ppd #2 s/p Primary Section doing well. Anemia Blood Type: O Rh: Positive Desires Breast feeding; pumping at this time as is at [facility] for higher level of care Rubella Immune Pain control with oral medications Bowel regimen: Increase fluid intake and fiber in diet, Laxative PRN PP BCM Plan: Undecided Discharge plan: May discharge home later today if condition remains stable Plan discussed with: Patient, Other (Patient's mother) Visit Coding OBGYN Date of Service: Mar 28, 2025 Billing Provider: WHITNEY THOMAS CNM OSTEOLOGIST Common Visit Codes: [id number] INP/OBS CARE(HIGH) WHITNEY THOMAS CNM Mar 28, 2025 06:16
--- NOTE | 2025-03-28 06:46 | DVHDS2 ---
Discharge Summary Date of Admission Mar 26, 2025 at 01:39 Date of Discharge: Mar 28, 2025 Admitting Diagnosis IUP at 39weeks GDMA1 Decreased Movement Category II FHR Tracing; [id number] Wounds: Lower transverse abdominal Incision with Sylke dressing on; same C/D/I Labs/Diagnostic Data: Laboratory Results Test 03/27/25 08:48 03/26/25 07:07 03/25/25 14:30 03/25/25 14:18 White Blood Count 13.6 10^3/uL (4.4-10.8) Red Blood Count 4.23 10^6/uL (4.0-5.20) Hemoglobin 10.3 g/dL (12.2-16.2) Hematocrit 31.7 % (36.0-46.0) Mean Corpuscular Volume 75.0 fL (80.0-100.0) Mean Corpuscular Hemoglobin 24.4 pg (28.0-32.0) Mean Corpuscular Hemoglobin Concent 32.5 g/dL (32.0-36.0) Red Cell Distribution Width 15.3 % (11.8-14.3) Platelet Count 186 10^3/uL (140-450) Mean Platelet Volume 9.7 fL (6.9-10.8) Neutrophils (%) (Auto) 78.3 % (37.0-80.0) Lymphocytes (%) (Auto) 13.5 % (10.0-50.0) Monocytes (%) (Auto) 7.5 % (0.0-12.0) Eosinophils (%) (Auto) 0.5 % (0.0-7.0) Basophils (%) (Auto) 0.2 % (0.0-2.0) Neutrophils # (Auto) 10.6 10 ^3/uL (1.6-8.6) Lymphocytes # (Auto) 1.8 10 ^3/uL (0.4-5.4) Monocytes # (Auto) 1.0 10 ^3/uL (0-1.3) Eosinophils # (Auto) 0.1 10 ^3/uL (0-0.8) Basophils # (Auto) 0 10 ^3/uL (0-0.2) Nucleated Red Blood Cells 0.0 % POC Glucose 93 mg/dl (70-106) Urine Color Light-yellow (Yellow) Urine Clarity Clear (Clear) Urine pH 6.5 (5.0-9.0) Urine Specific [place] 1.010 (1.001-1.035) Urine Protein Negative (Negative) Urine Ketones Negative (Negative) Urine Blood Negative /uL (Negative) Urine Nitrite Negative (Negative) Urine Bilirubin Negative (Negative) Urine Urobilinogen Normal mg/dL (Negative) Urine Leukocyte Esterase 1+ /uL (Negative) Urine RBC None seen /hpf (0 - 4) Urine Microscopic WBC 3 /HPF (0-5) Urine Squamous Epithelial Cells Few /hpf (<5) Urine Bacteria Few /hpf (None Seen) Urine Hyaline Casts Few /lpf (0 - 2) Urine Glucose Normal mg/dL (Normal) Urine Opiates Screen Neg (NEGATIVE) Urine Fentanyl Screen Neg (NEGATIVE) Urine Barbiturates Screen Neg (NEGATIVE) Urine Phencyclidine Screen Neg (NEGATIVE) Urine Amphetamines Screen Neg (NEGATIVE) Urine Benzodiazepines Screen Neg (NEGATIVE) Urine Cocaine Screen Neg (NEGATIVE) Urine Cannabinoids Screen Neg (NEGATIVE) Prothrombin Time 10.1 sec (9.3-11.8) Prothrombin Time INR 0.95 (0.9-1.15) Activated Partial Thromboplast Time 28.1 SEC (24.5-34.5) Sodium Level 139 mmol/L (136-145) Potassium Level 3.9 mmol/L (3.5-5.1) Chloride Level 108 mmol/L (98-107) Carbon Dioxide Level 21 mmol/L (20-31) Anion Gap 10 (5-15) Blood Urea Nitrogen 7 mg/dL (9-23) Creatinine 0.61 mg/dL (0.550-1.02) Glomerular Filtration Rate Calc 123 mL/min (>90) BUN/Creatinine Ratio 11.5 (10.0-20.0) Serum Glucose 129 mg/dL (74-106) Calcium Level 9.8 mg/dL (8.7-10.4) Total Bilirubin 0.3 mg/dL (0.2-1.0) Aspartate Amino Transferase (AST) 20 U/L (13-40) Alanine Aminotransferase (ALT) 10 U/L (7-40) Alkaline Phosphatase 195 U/L (46-116) Total Protein 6.1 g/dL (5.7-8.2) Albumin 3.9 g/dL (3.2-4.8) Treponema pallidum Antibody Non-reactive (Negative) Hepatitis C Antibody Negative (Negative) Other Laboratory Tests 03/27/25 08:48 03/25/25 14:18 Brief Hx & Hospital Course: Admitted on 03/26/25 at 39w EGA for Decreased movement. complicated by GDMA1. Had Category II / III FHR Tracing. Hence offered delivery via Section. She had primary Section (see operation Note for details). Infant with score 8 and 9 at one and five minutes of life respectively. was later transferred to [facility] for required higher level of care Normal course; meeting milestones w/o any problem or complications. Operations or Procedures EFM Primary Section Condition at Discharge: Stable Final Diagnosis/Problems List same Primary Section Secondary Diagnosis: Acute blood Loss Anemia Discharge Disposition: Home Discharge Instruct/Medications Diet: Regular Diet comment: Routine regular diet rich in fiber, protein, iron and vitamin C with adequate fluid intake. Activity: No Restrictions, As Tolerated Activity comment: Advance as tolerated. Balance activities with rest periods. No heavy lifting, pushing or straining. Pelvic rest x 6weeks Follow Up/Referral: Follow up with OB Provider w/in 1 week Medications: Ibuprofen, Hydrocodone-Axcetaminophen. Docusate Sodium. Continue Vitamin and iron Scheduled Docusate Sodium (Colace), 1 CAP PO BID Vit W/ Ferrous Fumara ( One Daily), 1 TAB PO DAILY, (Reported) Scheduled PRN Hydrocodone-Acetaminophen (Hydrocodone/Acetaminophen 10-325 mg), 1 TAB PO Q6HPRN PRN Ibuprofen (Ibuprofen), 800 MG PO TID PRN Discharge Statement: Post operative and self care instructions given. self care instructions given. emergency signs and symptoms including but not limited to pre-eclampsia precautions and signs of infection, PPH & of PPD reviewed with patient. Follow up with OB Provider in 1 week "Patient was advised to return to the ER or call 911 if any headaches, dizziness, shortness of breath, chest pain, abdominal pain, bleeding, fevers, or worsening of medical condition. Patient was counseled about treatment plan, medications, possible side effects, patientverbalized understanding. All questions were answered to the best of my ability. This discharge took greater then 30 minutes in planning, reviewing documentation, counseling the patient, and discussing with other team members." ASSESSMENT ASSESSMENT Hospital Course Admitted on 03/26/25 at 39w EGA for Decreased movement. complicated by GDMA1. Had Category II / III FHR Tracing. Hence offered delivery via Section. She had primary Section (see operation Note for details). with score 8qnd 9 at one and five minutes of life respectively. Infant was later transferred to [facility] for required higher level of care Normal course; meeting milestones w/o any problem or complications. Assessment same Primary Section Acute Blood Loss Anemia Visit Coding OBGYN Date of Service: Mar 28, 2025 Billing Provider: WHITNEY THOMAS CNM RESEARCH METHODS INSTRUCTOR Common Visit Codes: [id number] INP/OBS CARE(HIGH), 73771-IEI/OBS DISCH DAY <30MIN WHITNEY THOMAS CNM Mar 28, 2025 06:45
[2025-03-28 07:20] VITALS: BP 132/80; PULSE 80; RESP 16; TEMP 97.8; O2SAT 96
== END 2025-03-28 08:58 | disposition home or self-care (01) | DRG 540 ==
LOC: LDRP 12:40 → OBSVTOIN 03-26 01:39 → LDRP 03-26 20:28
PROVIDERS: ADMIT Obstetrics & Gynecology; ATTEND Obstetrics & Gynecology
PROC: 10D00Z1 Extraction of Products of Conception, Low, Open Approach (ICD-10-PCS; principal; 2025-03-26 09:29)
DX: O24.420 Gestational diabetes mellitus in childbirth, diet controlled (principal); D62 Acute posthemorrhagic anemia; O36.8130 Decreased fetal movements, third trimester, not applicable or unspecified; O76 Abnormality in fetal heart rate and rhythm complicating labor and delivery; O69.81X0 Labor and delivery complicated by cord around neck, without compression, not applicable or unspecified; Z37.0 Single live birth; Z3A.39 39 weeks gestation of pregnancy; O90.81 Anemia of the puerperium
CPT/HCPCS: 36415; 59025; 76819; 80053; 80307; 81001; 81002; 82948; 82962; 85025; 85610; 85730; 86780; 86803; 86850; 86900; 86901; 94760; 94762; 96360; 96361; 96365; 96366; G0378; J0131; J2405; J2590